=== PATIENT | female | born 1985 | race African-American/Black ===

== ENCOUNTER 2017-07-23 17:58 | Emergency (ER) | payer MEDICAID ==
[2017-07-23] MEDS ORDERED: LIDOCAINE 1% INJ-PF (10 MG/ML) 30 ML SDV INJ ONE (19:00)
--- NOTE | 2017-07-23 19:03 | ER Document Report ---
ED General - General Chief Complaint: Sore Throat Stated Complaint: HAND SWELLING Time Seen by Provider: 07/23/17 18:40 Mode of Arrival: Ambulatory Information source: Patient Notes: 31-year-old female presents to ED for complaint of sore throat 3 days right thumb pain and swelling 4 days. She denies any cough states she has had fevers and chills. TRAVEL OUTSIDE OF THE [place] IN LAST 30 DAYS: No - HPI Onset: Other - Sore throat for 3 days sore thumb for 4 days Onset/Duration: Gradual Quality of pain: Pressure, Sharp Severity: Moderate Pain Level: 4 Associated symptoms: Chills, Fever, Rhinnorhea, Sore throat, Other - Right sore thumb with swelling around the nail Exacerbated by: Food Relieved by: Denies Similar symptoms previously: Yes Recently seen / treated by doctor: No - Related Data Allergies/Adverse Reactions: No Known Allergies Allergy (Unverified 03/04/14 14:20) Past Medical History - General Information source: Patient - Social History Smoking Status: Never Smoker Cigarette use (# per day): No Chew tobacco use (# tins/day): No Smoking Education Provided: No Frequency of alcohol use: None Drug Abuse: None Occupation: Drives a school bus Lives with: Family - Alone with children Family History: Arthritis, Hypertension, Malignancy. denies: CAD, COPD, CVA, DM , Hyperlipidemia, Thyroid Disfunction Patient has suicidal ideation: No Patient has homicidal ideation: No - Past Medical History Cardiac Medical History: Reports: None Pulmonary Medical History: Reports: None EENT Medical History: Reports: None Neurological Medical History: Reports: None Endocrine Medical History: Reports: None Renal/ Medical History: Reports: None Malignancy Medical History: Reports: None GI Medical History: Reports: None Musculoskeltal Medical History: Reports None Skin Medical History: Reports None Psychiatric Medical History: Reports: None Traumatic Medical History: Reports: None Infectious Medical History: Reports: None Surgical Hx: Negative Review of Systems - Review of Systems Constitutional: Chills, Fever, Recent illness EENT: Throat pain Cardiovascular: No symptoms reported Respiratory: No symptoms reported Gastrointestinal: No symptoms reported Genitourinary: No symptoms reported Female Genitourinary: No symptoms reported Musculoskeletal: Other - Painful swelling around the nail of the right thumb Skin: Other - Red swollen right thumb around the nail Hematologic/Lymphatic: No symptoms reported Neurological/Psychological: No symptoms reported Physical Exam - Vital signs Vitals: Temp Pulse Resp Pulse Ox 99.8 F 76 16 100 07/23/17 18:13 07/23/17 18:13 07/23/17 18:13 07/23/17 18:13 Interpretation: Febrile - General General appearance: Appears well, Alert - HEENT Head: Normocephalic, Atraumatic Eyes: Normal Pupils: PERRL Ears: Normal External canal: Normal Tympanic membrane: Normal Sinus: Normal Nasal: Swelling, Clear rhinorrhea Mouth/Lips: Normal Mucous membranes: Normal Pharynx: Erythema, Post nasal drainage, Tonsillar hypertrophy. No: Peritonsillar abscess, Retropharyngeal abscess, Potential airway comprom. Neck: Normal - Respiratory Respiratory status: No respiratory distress Chest status: Nontender Breath sounds: Normal Chest palpation: Normal - Cardiovascular Rhythm: Regular Heart sounds: Normal auscultation Murmur: No - Abdominal Inspection: Normal Distension: No distension Bowel sounds: Normal Tenderness: Nontender Organomegaly: No organomegaly - Back Back: Normal, Nontender - Extremities General upper extremity: Normal inspection, Nontender, Normal color, Normal ROM , Normal temperature General lower extremity: Normal inspection, Nontender, Normal color, Normal ROM , Normal temperature, Normal weight bearing. No: Man's sign - Neurological Neuro grossly intact: Yes Cognition: Normal Orientation: AAOx4 Lisandro Coma Scale Eye Opening: Spontaneous [place] Coma Scale Verbal: Oriented Lisandro Coma Scale Motor: Obeys Commands Lisandro Coma Scale Total: 15 Speech: Normal Motor strength normal: LUE, RUE, LLE, RLE Sensory: Normal - Psychological Associated symptoms: Normal affect, Normal mood - Skin Skin Temperature: Warm Skin Moisture: Dry Skin Color: Normal Location of irregularity: Extremities - Around the nail of the right thumb Character of irregularity: Erythematous Irregularity with: Swelling, Tenderness, Warmth Course - Re-evaluation Re-evalutation: 07/23/17 19:43 Sunday the patient was treated for her paronychia with the I&D of the right thumb paronychia and she was treated with Keflex 500 mg 4 times daily for 5 days for the paronychia and an additional 5 days twice daily for her strep throat. Strep precautions given to patient due to her having small children at home. Patient was instructed to follow-up with her primary doctor for any complications or return to the ED. - Vital Signs Vital signs: Temp Pulse Resp BP Pulse Ox 100.2 F 90 16 136/81 H 99 07/23/17 19:06 07/23/17 19:06 07/23/17 18:13 07/23/17 19:06 07/23/17 19:06 Discharge - Discharge Clinical Impression: Strep pharyngitis, Paronychia Condition: Stable Disposition: HOME, SELF-CARE Additional Instructions: Paronychia You have an infection between the nail and the surrounding skin, called a paronychia. The germs infect the area after a minor skin injury, such as a hangnail. This infection is treated by releasing the pus. This is usually done by the skin from the nail. If the infection has spread underneath the nail, partial removal of the nail may be necessary. Hot-soak the area three or four times daily. Antibiotics are often given, but are not always necessary. Healing takes about a week. If pain or swelling becomes severe or if you develop fever or chills, call the doctor or return for re-examination. Epsom Salt Soaks Soak the wound area in a container of warm epsom salt water. If you can't get the wound area into a bucket or ling, use a folded towel soaked in the epsom salt solution and apply to the area. Use clean hot tap water (about the temperature of a very warm bath), mixing in about one (1) teaspoon for every pint of water. Two gallon --> 16 teaspoons Epsom Salts One gallon --> 8 teaspoons Epsom Salts Two quarts --> 4 teaspoons Epsom Salts One quart --> 2 teaspoons Epsom Salts Soak the wound for about 20 minutes while gently moving it around in the water. Repeat this four (4) times a day. STREP THROAT: Your sore throat is due to the streptococcus germ (strep throat). Strep throat usually makes you feel quite ill with fever and aches, headache, swollen sore throat, and tender bumps under the angles of the jaw. Strep throat requires antibiotic treatment. Although the sore throat may go away by itself, complications such as rheumatic fever, kidney disease, or throat abscess can occur. We usually prescribe antibiotics by mouth. Be sure to take the medicine until it's gone. If you stop early, the strep may come back. If you are vomiting, are severely ill, or can't remember to take pills, we can give you an antibiotic shot. Take acetaminophen or ibuprofen for pain and fever. Sip frequent clear liquids, or use popsicles or ice chips. Anesthetic sprays or lozenges may help. Make sure the air in the room is not too dry. Avoid using decongestants or antihistamines. Call the doctor if there is no improvement in three days, or if you have difficulty breathing, increasing throat pain, high fever, rash, or frequent vomiting. Cephalexin The antibiotic you've been prescribed is a member of the cephalosporin class. This type of antibiotic covers a wide variety of infections, including those of the skin, lungs, and urinary tract. It's useful for staph infections. This antibiotic is slightly similar to the penicillin family. In rare cases , a person who is allergic to penicillin will also be allergic to this medication. If you have had a severe allergic reaction to penicillin, and have not taken this antibiotic since that time, notify your doctor. Antibiotics which cover many germs ("broad spectrum" antibiotics) are more likely to cause diarrhea or "yeast" infections. Women prone to vaginal yeast problems may suffer an attack after taking this antibiotic. In infants, oral thrush (white spots "stuck" on the cheek) or yeast diaper rash may result. See your doctor if these problems occur. Call at once if you develop itching, hives , shortness of breath, or lightheadedness. FOLLOW-UP CARE: If you have been referred to a physician for follow-up care, call the physician s office for an appointment as you were instructed or within the next two days. If you experience worsening or a significant change in your symptoms, notify the physician immediately or return to the Emergency Department at any time for re-evaluation. Prescriptions: Cephalexin Monohydrate [Keflex 500 mg Capsule] 500 mg PO Q6H #30 capsule Forms: Return to Work, Elevated Blood Pressure
[2017-07-23] MEDS ORDERED: CEPHALEXIN 500 MG CAPSULE PO ONE (19:23)
[2017-07-23] MEDS ORDERED: IBUPROFEN 800 MG TABLET PO ONE (19:23)
[2017-07-23 19:51] VITALS: BP 145/88
== END 2017-07-23 19:51 | disposition home or self-care (01) ==
LOC: ER 17:58
DX: J02.0 Streptococcal pharyngitis (principal); L03.011 Cellulitis of right finger; R09.82 Postnasal drip; R50.9 Fever, unspecified; J34.89 Other specified disorders of nose and nasal sinuses
CPT/HCPCS: 99283; 87880; 10060; J3490 ×2

== ENCOUNTER 2018-02-27 10:26 | Emergency (ER) | payer SELFPAY ==
[2018-02-27 10:36] VITALS: BP 134/86
[2018-02-27] MEDS ORDERED: GUAIFENESIN 600 MG TABLET.SA PO ONE (10:52)
[2018-02-27] MEDS ORDERED: LORATADINE 10 MG TABLET PO ONE (10:52)
[2018-02-27] MEDS ORDERED: PSEUDOEPHEDRINE HCL 30 MG TABLET PO ONE (10:52)
--- NOTE | 2018-02-27 10:54 | ER Document Report ---
ED ENT - General Chief Complaint: Sore Throat Stated Complaint: SICK Time Seen by Provider: 02/27/18 10:39 Mode of Arrival: Ambulatory Information source: Patient Notes: 32-year-old female presents to ED for complaint of sore throat since Sunday with cough congestion. She states she has not had a fever. She states she had some antibiotics that were pink and rubio that she took 1 of. She states she had leftover from long time ago. Patient was educated on the use of "leftover antibiotics "she was also instructed on the use of antibiotics appropriately. She states she smokes 1 black mild at least a couple times a week. TRAVEL OUTSIDE OF THE [place] IN LAST 30 DAYS: No - HPI Patient complains to provider of: Nose problem, Throat problem Onset: Other Onset/Duration: Gradual - Sunday Quality of pain: Achy Pain Level: 3 Context: Recent Illness Location of pain: Nose, Throat Associated symptoms: Congestion, Cough, Sinus pain, Sinus drainage, Sore throat. denies: Fever Similar symptoms previously: Yes Recently seen / treated by doctor: No - Related Data Allergies/Adverse Reactions: No Known Allergies Allergy (Unverified 03/04/14 14:20) Past Medical History - General Information source: Patient - Social History Smoking Status: Current Some Day Smoker Cigarette use (# per day): Yes - Black and mild 2-3 a week Smoking Education Provided: Yes - 4 minutes Frequency of alcohol use: Rare Drug Abuse: None Occupation: Schoolbus route cdl driver Family History: Arthritis, Hypertension, Malignancy. denies: CAD, COPD, CVA, DM , Hyperlipidemia, Thyroid Disfunction - Past Medical History Cardiac Medical History: Reports: None Pulmonary Medical History: Reports: None EENT Medical History: Reports: None Neurological Medical History: Reports: None Endocrine Medical History: Reports: None Renal/ Medical History: Reports: None Malignancy Medical History: Reports: None GI Medical History: Reports: None Musculoskeltal Medical History: Reports None Skin Medical History: Reports None Psychiatric Medical History: Reports: None Traumatic Medical History: Reports: None Infectious Medical History: Reports: None Surgical Hx: Negative Past Surgical History: Reports: None - Immunizations Immunizations up to date: Yes Review of Systems - Review of Systems Constitutional: Recent illness. denies: Fever EENT: Nose congestion, Nose discharge, Throat pain Cardiovascular: No symptoms reported Respiratory: Cough Gastrointestinal: No symptoms reported Genitourinary: No symptoms reported Female Genitourinary: No symptoms reported Musculoskeletal: No symptoms reported Skin: No symptoms reported Hematologic/Lymphatic: No symptoms reported Neurological/Psychological: No symptoms reported -: Yes All other systems reviewed and negative Physical Exam - Vital signs Vitals: Temp Pulse Resp BP Pulse Ox 98.8 F 66 16 134/86 H 100 02/27/18 10:35 02/27/18 10:35 02/27/18 10:35 02/27/18 10:35 02/27/18 10:35 Interpretation: Normal - General General appearance: Appears well, Alert - HEENT Head: Normocephalic, Atraumatic Eyes: Normal Pupils: PERRL Ears: Normal External canal: Normal Tympanic membrane: Normal Nasal: Purulent discharge, Swelling Mouth/Lips: Normal Mucous membranes: Normal Pharynx: Erythema, Post nasal drainage. No: Exudate, Tonsillar hypertrophy Neck: Normal - Respiratory Respiratory status: No respiratory distress Chest status: Nontender Breath sounds: Nonproductive cough Chest palpation: Normal - Cardiovascular Rhythm: Regular Heart sounds: Normal auscultation Murmur: No - Abdominal Inspection: Normal Distension: No distension Bowel sounds: Normal Tenderness: Nontender Organomegaly: No organomegaly - Back Back: Normal, Nontender - Extremities General upper extremity: Normal inspection, Nontender, Normal color, Normal ROM , Normal temperature General lower extremity: Normal inspection, Nontender, Normal color, Normal ROM , Normal temperature, Normal weight bearing. No: Man's sign - Neurological Neuro grossly intact: Yes Cognition: Normal Orientation: AAOx4 Lisandro Coma Scale Eye Opening: Spontaneous Lisandro Coma Scale Verbal: Oriented Lisandro Coma Scale Motor: Obeys Commands [place] Coma Scale Total: 15 Speech: Normal Motor strength normal: LUE, RUE, LLE, RLE Sensory: Normal - Psychological Associated symptoms: Normal affect, Normal mood - Skin Skin Temperature: Warm Skin Moisture: Dry Skin Color: Normal Course - Re-evaluation Re-evalutation: 02/27/18 11:00 Patient was treated with Claritin, Sudafed, Mucinex, and instructed to use the same at home. Patient was noted that these are all [id number] medications and she can get them from the pharmacy. She was also instructed on the use of Flonase and salt and soda solutions. Patient to follow-up with her primary doctor for any increase in pain or any other symptoms. She is also instructed she could go back to the ER for any concerns or increasing condition. Patient verbalized understanding of instructions. After performing a Medical Screening Examination, I estimate there is LOW risk for ACUTE CORONARY SYNDROME, RESPIRATORY FAILURE, SEPSIS OR MENINGITIS, thus I consider the discharge disposition reasonable. I have reevaluated this patient multiple times and no significant life threatening changes are noted. The patient and I have discussed the diagnosis and risks, and we agree with discharging home with close follow-up. We also discussed returning to the Emergency Department immediately if new or worsening symptoms occur. We have discussed the symptoms which are most concerning (e.g., changing or worsening pain, trouble swallowing or breathing, neck stiffness, fever) that necessitate immediate return. - Vital Signs Vital signs: Temp Pulse Resp BP Pulse Ox 98.8 F 66 16 134/86 H 100 02/27/18 10:35 02/27/18 10:35 02/27/18 10:35 02/27/18 10:35 02/27/18 10:35 Discharge - Discharge Clinical Impression: Viral sore throat URI (upper respiratory infection) Qualifiers: URI type: unspecified URI Qualified Code(s): J06.9 - Acute upper respiratory infection, unspecified Condition: Stable Disposition: HOME, SELF-CARE Instructions: Family Physicians / Practices Additional Instructions: UPPER RESPIRATORY ILLNESS: You have a viral infection of the respiratory passages -- a "cold." This common infection causes nasal congestion, drainage, and often sore throat and cough. It is highly contagious. The disease usually lasts about 10 to 14 days. There is no "cure" for the viral infection -- it must run its course. If there is a complication, such as bacterial infection in the nose, sinuses, middle ear, or bronchial tubes, antibiotics may be required. The antibiotics won't affect the virus. Drink plenty of fluids. A humidifier may help. An expectorant medication or decongestant may make you more comfortable. Use acetaminophen or ibuprofen for fever or aches. See the doctor if fever persists over two days, if there is any significant worsening of your symptoms, or if you simply fail to improve as expected. SORE THROAT: Sore throats may be caused by viruses, bacteria, or fungi. Most are due to a virus, and must get better on their own. Bacterial sore throats, particularly those due to "strep," need treatment with antibiotics. If an antibiotic is prescribed, be sure to take the medication for a full 10 days. Failure to take the antibiotic can result in complications such as rheumatic fever. Sometimes, an injection of antibiotics is given instead of pills or liquid. This single "shot" is equal in effectiveness to the oral medication. To relieve symptoms, take acetaminophen for pain. Sip clear liquids frequently, or eat popsicles or ice chips. Anesthetic sprays or lozenges may help. Make sure the air in the room is not too dry. Avoid using decongestants or antihistamines. Call the doctor if there is no improvement in two days, or if you have difficulty breathing, increasing throat pain, high fever, rash, or frequent vomiting. DECONGESTANT MEDICATION: A decongestant medicine has been suggested. Often this medicine is combined in the same tablet with an antihistamine or expectorant. This type of medicine is helpful in treating a bad cold or sinus condition, as well as in treatment of the nasal congestion of hay fever. It is not of much benefit for lung infections. Decongestant medicines are related to stimulants. They can cause an increase in blood pressure and heart rate. Persons with heart disease and high blood pressure should not take decongestants without discussing this with the physician. If you develop palpitations, chest pain, headache, or tremors, stop the medicine and consult your physician. COUGH-SUPPRESSANT & EXPECTORANT MEDICATION: You are to use a cough medication as needed for relief of symptoms. This medicine is a combination of an expectorant (to make the mucous thinner and more easily "coughed up") and a cough suppressant (to reduce the frequency of coughing). The cough-suppressant medicine is related to narcotics. You may experience mild nausea and sleepiness. Some patients who are very sensitive to narcotics may have stomach pain from this medicine. Taking the medicine with food reduces these side effects. Do not drive or work with machinery until you know how this medicine affects you. The expectorant should have no side effects. Iodine-containing expectorants (such as organidin) should not be taken by persons with active thyroid disease unless approved by your doctor. Call the doctor if you develop shortness of breath, hives, rash, itching, lightheadedness, or severe nausea and vomiting. USE OF ACETAMINOPHEN (Tylenol): Acetaminophen may be taken for pain relief or fever control. It's much safer than aspirin, offering a wider range of "safe" dosages. It is safe during . Some brand names are Tylenol, Panadol, Datril, Anacin 3, Tempra, and Liquiprin. Acetaminophen can be repeated every four hours. The following are maximum recommended dosages: >89 pounds or adults 650 mg to 900 mg Acetaminophen can be repeated every four hours. Maximum dose not to exceed 4000 mg a day. SMOKING: If you smoke, you should stop smoking. The tar and chemicals in cigarette smoke are harmful. Smoking has been shown to cause: emphysema chronic bronchitis lung cancer mouth and throat cancer stomach and pancreas cancer premature aging defects In addition, smoking increases ear and lung infections in children of smokers. You will treated with Claritin 10 mg, Sudafed 30 mg, Mucinex 600 mg p.o. in the emergency room. These are all mtzo-rla-rjikval medications. You can also use Flonase according to the box directions this will also help your cough and cold symptoms. Another remedy would be salt and soda solution gargles. Salt and soda solution 1 quart of water 1 tablespoon of salt 1 teaspoon of baking soda Mixed 3 ingredients together and boil for 1 minute Placed in a covered quart jar Use 1/2 ounce of cold solution to gargle 3 times a day FOLLOW-UP CARE: If you have been referred to a physician for follow-up care, call the physician s office for an appointment as you were instructed or within the next two days. If you experience worsening or a significant change in your symptoms, notify the physician immediately or return to the Emergency Department at any time for re-evaluation. Forms: Elevated Blood Pressure, Smoking Cessation Education, Return to Work
== END 2018-02-27 11:04 | disposition home or self-care (01) ==
LOC: ER 10:26
DX: J02.9 Acute pharyngitis, unspecified (principal); J06.9 Acute upper respiratory infection, unspecified; F17.210 Nicotine dependence, cigarettes, uncomplicated
CPT/HCPCS: 99283

== ENCOUNTER 2019-11-28 17:41 | Emergency (ER) | payer SELFPAY ==
--- NOTE | 2019-11-28 18:08 | ER Document Report ---
ED Medical Screen (RME) - General Chief Complaint: Abdominal Pain Stated Complaint: ABDOMINAL PAIN, LOW BACK PAIN Time Seen by Provider: 11/28/19 18:03 Mode of Arrival: Ambulatory Information source: Patient Notes: 34-year-old female presented to ED for complaint of abdominal pain x2 months with nausea but no diarrhea. She states it is in the left flank area. She states she has not had any urinary symptoms no blood in the urine no frequency urgency with urination. She states her last normal menstrual cycle was October [id number] she took a Plan B pill on November 10 and did have some vaginal bleeding after that. She is alert oriented respirations regular nonlabored speaking in full sentences. I have greeted and performed a rapid initial assessment of this patient. A comprehensive ED assessment and evaluation of the patient, analysis of test results and completion of medical decision making process will be conducted by an additional ED providers. TRAVEL OUTSIDE OF THE [place] IN LAST 30 DAYS: No - Related Data Allergies/Adverse Reactions: No Known Allergies Allergy (Unverified 03/04/14 14:20) Past Medical History - General Information source: Patient - Social History Cigarette use (# per day): Yes - 1-2 black in miles a day Frequency of alcohol use: None Drug Abuse: None Lives with: Alone Family history: Reviewed & Not Pertinent - With her children - Medical History Medical History: Negative Renal/ Medical History: Denies: Hx Peritoneal Dialysis Surgical Hx: Negative - Immunizations Immunizations up to date: Yes Physical Exam - Vital signs Vitals: Temp Pulse Resp BP Pulse Ox 98.2 F 100 16 142/88 H 100 11/28/19 17:47 11/28/19 17:47 11/28/19 17:47 11/28/19 17:47 11/28/19 17:47 Course - Vital Signs Vital signs: Temp Pulse Resp BP Pulse Ox 98.2 F 100 16 142/88 H 100 11/28/19 17:47 11/28/19 17:47 11/28/19 17:47 11/28/19 17:47 11/28/19 17:47
[2019-11-28 19:10] LABS: ABSOLUTE EOSINOPHILS # (AUTO) 0.2 10^3/uL (0.0-0.6); ABSOLUTE LYMPHOCYTES (AUTO) 1.2 10^3/uL (0.5-4.7); ABSOLUTE MONOCYTES (AUTO) 0.5 10^3/uL (0.1-1.4); BASOPHILS % (AUTO) 0.9 % (0-2); EOSINOPHILS % (AUTO) 3.8 % (0-6); HEMOGLOBIN 14.3 g/dL (12.0-15.5); LYMPHOCYTES % (AUTO) 24.5 % (13-45); MEAN CORPUSCULAR HEMOGLOBIN 29.6 pg (27.0-33.4); MEAN CORPUSCULAR HGB CONC 34.1 g/dL (32.0-36.0); MEAN CORPUSCULAR VOLUME 87 fl (80-97); MONOCYTES % (AUTO) 10.3 % (3-13); PLATELET COUNT 232 10^3/uL (150-450); RED BLOOD COUNT 4.85 10^6/uL (3.72-5.28); RED CELL DISTRIBUTION WIDTH 13.3 % (11.5-14.0); SEGMENTED NEUTROPHILS % (AUTO) 60.5 % (42-78); TOTAL CELLS COUNTED % (AUTO) 100 %
[2019-11-28 19:24] LABS: APPEARANCE,URINE SLIGHTLY-CLOUDY; BILIRUBIN,URINE NEGATIVE (NEGATIVE); COLOR,URINE YELLOW; GLUCOSE, URINE NEGATIVE (NEGATIVE); KETONES,URINE NEGATIVE (NEGATIVE); PROTEIN,URINE NEGATIVE (NEGATIVE); UROBILINOGEN,URINE NEGATIVE mg/dL (<2.0)
[2019-11-28 19:32] LABS: ALBUMIN 4.3 g/dL (3.5-5.0); ALKALINE PHOSPHATASE 55 U/L (38-126); ANION GAP 6 (5-19); ASPARTATE AMINO TRANSFERASE 21 U/L (14-36); BILIRUBIN,TOTAL 0.4 mg/dL (0.2-1.3); BLOOD UREA NITROGEN 5 mg/dL (7-20); CALCIUM 9.5 mg/dL (8.4-10.2); CARBON DIOXIDE 31 mmol/L (22-30); CHLORIDE 103 mmol/L (98-107); GLUCOSE 70 mg/dL (75-110); TOTAL PROTEIN 7.4 g/dL (6.3-8.2)
--- NOTE | 2019-11-29 00:23 | ER Document Report ---
ED General - General Chief Complaint: Abdominal Pain Stated Complaint: ABDOMINAL PAIN, LOW BACK PAIN Time Seen by Provider: 11/28/19 18:03 Mode of Arrival: Ambulatory TRAVEL OUTSIDE OF THE [place] IN LAST 30 DAYS: No - HPI Notes: 34-year-old female [id number] presented to ED for complaint of abdominal pain x2 months with nausea but no diarrhea. She states it is in the left flank area. She states she has not had any urinary symptoms no blood in the urine no frequency urgency with urination. She states her last normal menstrual cycle was October [id number] she took a Plan B pill on November 10 and did have some vaginal bleeding after that. No surgery. No history of renal stones. - Related Data Allergies/Adverse Reactions: No Known Allergies Allergy (Unverified 03/04/14 14:20) Past Medical History - General Information source: Patient - Social History Smoking Status: Current Every Day Smoker Cigarette use (# per day): Yes - 1-2 black in miles a day Frequency of alcohol use: None Drug Abuse: None Lives with: Alone Family History: Arthritis, Hypertension, Malignancy. denies: CAD, COPD, CVA, DM, Hyperlipidemia, Thyroid Disfunction Patient has suicidal ideation: No Patient has homicidal ideation: No - Medical History Medical History: Negative Renal/ Medical History: Denies: Hx Peritoneal Dialysis Surgical Hx: Negative - Immunizations Immunizations up to date: Yes Review of Systems - Review of Systems Notes: Constitutional: Negative for fever. HENT: Negative for sore throat. Eyes: Negative for visual changes. Cardiovascular: Negative for chest pain. Respiratory: Negative for shortness of breath. Gastrointestinal: As per HPI. Genitourinary: As per HPI. Musculoskeletal: Negative for back pain. Skin: Negative for rash. Neurological: Negative for headaches, weakness or numbness. 10 point ROS negative except as marked above and in HPI. Physical Exam - Vital signs Vitals: Temp Pulse Resp BP Pulse Ox 98.2 F 100 16 142/88 H 100 11/28/19 17:47 11/28/19 17:47 11/28/19 17:47 11/28/19 17:47 11/28/19 17:47 - Notes Notes: GENERAL: Well-developed well-nourished appearing in no acute distress. SKIN: Good turgor no rashes. HEAD: Normocephalic atraumatic. EYES: PERRLA. EOMI. Conjunctivae and sclerae clear. EARS: CANALS AND TMS CLEAR. NOSE: CLEAR. MOUTH: Moist mucosa. Good dentition. No stridor or edema. No drooling. NECK: Supple. No masses or thyromegaly. No adenopathy. Carotids 2+ without bruits. No JVD. BACK: Symmetrical without tenderness. CHEST: Respirations unlabored. Breath sounds clear and symmetrical. HEART: Regular rhythm. No murmur gallop or rub. ABDOMEN: Soft nontender without masses, organomegaly or rebound. Bowel sounds normally active. No bruits. Pelvic: Normal external genitalia and hair distribution. Small amount white vaginal discharge. Cervix is parous without lesions. There is no cervical motion tenderness. Right ovary and adnexa are normal. Mildly tender over the left ovary and adnexa with no obvious mass. EXTREMITIES: No edema. No calf tenderness. Cap refill less than 1.5 seconds. Dorsalis pedis and posterior tibial pulses 3+ and symmetrical. NEUROLOGICAL: GCS 15. Alert and oriented x3. Normal gait. Fluent speech. Cranial nerves II through XII intact. Sensorimotor and cerebellar normal. Normal tone. PSYCHIATRIC: Appropriate affect. Course - Re-evaluation Re-evalutation: 11/29/19 00:24 test negative. Urine is clear. We will request a pelvic ultrasound because of concern about a possible left ovarian cyst. 11/29/19 02:47 Patient has a small left-sided ovarian cyst on ultrasound. I went back and checked a serum hCG and this is less than threshold 2.3. I am going to give her some NSAID at home and refer her to [facility] for follow-up. - Vital Signs Vital signs: Temp Pulse Resp BP Pulse Ox 98.2 F 100 16 142/88 H 100 11/28/19 17:47 11/28/19 17:47 11/28/19 17:47 11/28/19 17:47 11/28/19 17:47 - Laboratory Result Diagrams: 11/28/19 18:46 11/28/19 18:46 Laboratory results interpreted by me: 11/28/19 11/28/19 18:46 18:46 Carbon Dioxide 31 H BUN 5 L Glucose 70 L Leukocyte Esterase Rfl TRACE H Urine Ascorbic Acid 20 H Discharge - Discharge Clinical Impression: Left ovarian cyst Condition: Stable Disposition: HOME, SELF-CARE Additional Instructions: Ovarian Cyst Your examination shows the presence of an ovarian cyst. This is a ball of fluid attached to the ovary. Ovarian cysts in women of child-bearing age are usually innocent. However, the cyst may cause pain when it grows or bursts. An innocent ovarian cyst will usually go away by itself. When the cyst becomes painful, you should rest. Pain medication may be required. Some women find a hot water bottle soothing. The pain usually resolves within one or two days. After menopause, an ovarian cyst may mean a tumor, and requires more aggressive evaluation -- usually surgery is recommended to remove or biopsy the cyst. A very large cyst requires evaluation at any age. Most cysts (even the innocent ones) require follow-up examination. Call the doctor or return at any time if the pain increases significantly, if you become faint, or if you experience vaginal bleeding. Return here as needed for new or worsening symptoms: Pain that is worsening or unimproved Uncontrolled vomiting High fever or shaking chills Overall worsening Prescriptions: Naproxen 500 mg PO BID PRN 7 Days #14 tablet PRN Reason: Referrals: DIAZ MORAN MD [ACTIVE STAFF] - Follow up as needed
[2019-11-29 00:42] LABS: BACTERIA (WET MOUNT) 4+ BACTERIA SEEN; EPITHELIALS (WET MOUNT) 3+ EPITHELIALS SEEN; T.VAGINALIS (WET MOUNT) NO TRICHOMONAS SEEN; WBCS (WET MOUNT) 1+ WBCS SEEN; YEAST (WET MOUNT) NO YEAST SEEN
--- NOTE | 2019-11-29 01:11 | RADIOLOGY REPORT (SQ) ---
EXAM DESCRIPTION: [facility]: US PELVIS TRANSVAGINAL CLINICAL HISTORY: 34 years Female; left side pelvic pain; TECHNIQUE: Endovaginal pelvic ultrasound was performed. COMPARISON: 10/10/2013 FINDINGS: Uterus: 9.4 x 4.7 x 5.7 cm, with 11 mm endometrial stripe. No uterine masses. Cervix 3.2 cm Right ovary: 4.3 x 3.3 x 2.9 cm with 1.6 cm dominant follicle. Normal vascular flow on Doppler. Left ovary: 3.7 x 2.8 x 2.8 cm. 1.5 x 1.4 x 1.6 cm anechoic cyst containing a marginal 5 mm cystic structure. Normal vascular flow on Doppler. No free fluid. IMPRESSION: 1. No ovarian torsion 2. Atypical 1.6 cm left ovarian cyst containing a smaller 5 mm cystic structure. Correlation with beta-hCG is recommended to exclude an ectopic . Otherwise, this is likely a benign cyst. Since it is somewhat atypical, 6-12 week follow-up may be warranted.
[2019-11-29 02:04] LABS: CHLAM PCR NOT DETECTED (NOT DETECT)
[2019-11-29 03:25] VITALS: BP 140/78
== END 2019-11-29 03:20 | disposition home or self-care (01) ==
LOC: ER 17:41
DX: N83.202 Unspecified ovarian cyst, left side (principal); R10.9 Unspecified abdominal pain; M54.5 Low back pain; R11.0 Nausea; F17.210 Nicotine dependence, cigarettes, uncomplicated
CPT/HCPCS: 36415; 76830; 80053; 81001; 81025; 83690; 84702; 85025; 87210; 87491; 87591; 99284

== ENCOUNTER 2020-03-20 14:43 | Emergency (ER) | payer SELFPAY ==
--- NOTE | 2020-03-20 15:25 | ER Document Report ---
HPI - HPI Time Seen by Provider: 03/20/20 15:20 Pain Level: 3 Context: Patient is a 34-year-old female who presents to the emergency department with a chief complaint of the left proximal second toe pain. Patient states that she hit her toe in the tub about 3 days ago. Patient denies hitting her head. Patient states that it hurts when she walks. Denies any past medical history. Does not take any medications. Walking on her foot. - ROS Systems Reviewed and Negative: Yes All other systems reviewed and negative - REPRODUCTIVE Reproductive: DENIES: : - MUSCULOSKELETAL Musculoskeletal: REPORTS: Extremity pain - left second toe, Swelling - left secont toe - DERM Skin Color: Normal Skin Problems: Bruise - left 2nd toe Past Medical History - Social History Smoking Status: Never Smoker Frequency of alcohol use: None Drug Abuse: None Family History: Arthritis, Hypertension, Malignancy. denies: CAD, COPD, CVA, DM, Hyperlipidemia, Thyroid Disfunction Patient has homicidal ideation: No Renal/ Medical History: Denies: Hx Peritoneal Dialysis - Immunizations Immunizations up to date: Yes Vertical Provider Document - CONSTITUTIONAL Agree With Documented VS: Yes Exam Limitations: No Limitations General Appearance: No Apparent Distress - INFECTION CONTROL TRAVEL OUTSIDE OF THE [place] IN LAST 30 DAYS: No - HEENT HEENT: Atraumatic, Normocephalic, PERRLA - NECK Neck: Normal Inspection - RESPIRATORY Respiratory: No Respiratory Distress - CARDIOVASCULAR Cardiovascular: Regular Rate, Regular Rhythm Pulses: Normal: Posterior tibial, Dorsalis pedis - MUSCULOSKELETAL/EXTREMETIES Musculoskeletal/Extremeties: FROM, Tender - left second toe, Edema - slight to left second toe, Eccymosis - left second toe - NEURO Level of Consciousness: Awake, Alert, Appropriate Motor/Sensory: No Motor Deficit, No Sensory Deficit - DERM Integumentary: Warm, Dry, No Rash Course - Re-evaluation Re-evalutation: 03/20/20 Patient's left second toe shows a fracture at the proximal phalanges. Will place patient in a postop shoe, give crutches, and wagner tape her toes. She will follow-up with orthopedics. Capillary refill less than 3 seconds. Dorsalis pedis and posterior tibial pulses 2+. No vascular compromise noted. And is able to flex and extend the digit with no difficulty. No concern for a tendon rupture. Follow-up precautions were given. Verbal discharge instructions were given to the patient. They verbalized understanding. They are stable for discharge. - Vital Signs Vital signs: Temp Pulse Resp BP Pulse Ox 99.7 F 92 16 141/82 H 98 03/20/20 15:20 03/20/20 14:48 03/20/20 14:48 03/20/20 14:48 03/20/20 14:48 Procedures - Immobilization Left 2nd digit Pre-Proc Neuro Vasc Exam: Normal Immobilizer type: Crutches, Post-op shoe, Other - wagner tape Performed by: PCT Post-Proc Neuro Vasc Exam: Normal, Unchanged from pre-exam Alignment checked and good: Yes Discharge - Discharge Clinical Impression: Fracture of second toe, left, closed Qualifiers: Encounter type: initial encounter Qualified Code(s): S92.502A - Displaced unspecified fracture of left lesser toe(s), initial encounter for closed fracture Condition: Stable Disposition: HOME, SELF-CARE Instructions: Use of Crutches ([facility]), Post-Op Shoe ([facility]), Fractured Toe ([facility]) Additional Instructions: You were seen today in the emergency department for left second toe pain. You have a fracture. Please use the crutches and postop shoe to protect her foot. Make sure you rest your foot, elevated, and apply ice if needed. Follow-up with orthopedics this week in regards to this visit. You can take ibuprofen 600 mg and acetaminophen 1000 mg every 6 hours as needed for your pain. Forms: Return to Work Referrals: JOSE RAYMOND MD [ACTIVE PROVISIONAL STAFF] - Follow up in 3-5 days SHARATH AMEZCUA JR, DO [ACTIVE PROVISIONAL STAFF] - Follow up in 3-5 days ILEANA MARTEL MD [ACTIVE STAFF] - Follow up in 3-5 days
--- NOTE | 2020-03-20 16:07 | RADIOLOGY REPORT (SQ) ---
EXAM DESCRIPTION: TOE LEFT IMAGES COMPLETED DATE/TIME: 03/20/2020 3:37 pm REASON FOR STUDY: 2nd toe contusion; swelling . Fell out of bathtub. COMPARISON: None. NUMBER OF VIEWS: Three views. TECHNIQUE: AP view of the left foot and lateral and AP images acquired of the left second toe. LIMITATIONS: None. FINDINGS: MINERALIZATION: Normal. BONES: There is a mildly displaced acute fracture at the base of the 2nd middle phalanx. SOFT TISSUES: Mild diffuse soft tissue swelling at the 2nd toe. No radiopaque foreign body. IMPRESSION: Mildly displaced acute fracture at the base of the middle phalanx at the left 2nd toe. COMMENT: SITE OF TRAUMA/COMPLAINT MARKED/STAMP COMPLETED: NO. TECHNICAL DOCUMENTATION: JOB ID: [id number] [employer]- All Rights Reserved Reading location - IP/workstation name: [email or web address]
[2020-03-20 16:49] VITALS: BP 140/94
== END 2020-03-20 17:02 | disposition home or self-care (01) ==
LOC: ER 14:43
DX: S92.512A Displaced fracture of proximal phalanx of left lesser toe(s), initial encounter for closed fracture (principal); W18.2XXA Fall in (into) shower or empty bathtub, initial encounter
CPT/HCPCS: 99283